=== PATIENT | female | born 1965 | race Caucasian/White ===

== ENCOUNTER 2018-04-09 08:27 | Emergency (ER) | payer OTHER ==
[~2018-04-09] VITALS: Ht 162.6 cm; Wt 69.0 kg
[~2018-04-09 08:27] MED LIST: ASPI-650 PO; CITA40TA5 PO
[2018-04-09] MEDS ORDERED: SODIUM CHLORIDE 0.9% 1,000 ML IV ONE (08:43)
[2018-04-09] MEDS ORDERED: FAMOTIDINE 20 MG/2 ML ONE (08:53)
[2018-04-09] MEDS ORDERED: ONDANSETRON ODT 4 MG ONE (08:53)
[2018-04-09] MEDS ORDERED: SODIUM CHLORIDE 0.9% 1,000ML IVBOLUS ONE (09:00)
[2018-04-09] MEDS ORDERED: FAMOTIDINE 20 MG/2 ML IVP ONE (09:00)
[2018-04-09] MEDS ORDERED: ONDANSETRON ODT 4 MG PO ONE (09:00)
[2018-04-09 09:11] LABS: MICROSCOPIC INDICATED
[2018-04-09 09:16] LABS: BASOPHILS # (AUTO) 0.02 x10^3/uL (0-0.1); BASOPHILS % (AUTO) 0 % (0-1); EOSINOPHILS # (AUTO) 0.12 x10^3/uL (0-0.4); EOSINOPHILS % (AUTO) 2 % (1-7); LYMPHOCYTES # (AUTO) 1.18 x10^3/uL (1-3.4); LYMPHOCYTES % (AUTO) 18 % (22-44); MD NO; MEAN CORPUSCULAR HGB CONC 34.4 g/dL (32.4-35.8); MEAN CORPUSCULAR VOLUME 84.5 fL (80-100); MEAN PLATELET VOLUME 7.1 fL (7.4-10.4); MONOCYTES # (AUTO) 0.74 x10^3/uL (0.2-0.8); MONOCYTES % (AUTO) 12 % (2-9); NEUTROPHILS # (AUTO) 4.37 x10^3/uL (1.8-6.8); NEUTROPHILS % (AUTO) 68 % (42-75); PLATELET COUNT 233 x10^3/uL (130-400); RED BLOOD COUNT 5.38 x10^6/uL (3.82-5.3); RED CELL DISTRIBUTION WIDTH 12.1 % (9.6-15.2)
[2018-04-09 09:21] LABS: CULTURE INDICATED? NO
[2018-04-09 09:25] LABS: ALANINE AMINOTRANSFERASE 24 U/L (12-78); ALBUMIN 3.1 g/dL (3.4-5.0); ANION GAP 9 mmol/L (5-15); CALCIUM 7.8 mg/dL (8.5-10.1); CHLORIDE 114 mmol/L (98-107); CREATININE 0.82 mg/dL (0.55-1.02)
[2018-04-09 09:27] LABS: ALKALINE PHOSPHATASE 73 U/L (45-117); BILIRUBIN,TOTAL 0.4 mg/dL (0.2-1.0); TOTAL PROTEIN 6.2 g/dL (6.4-8.2)
[2018-04-09 10:16] VITALS: BP 111/49
== END 2018-04-09 12:17 | disposition home or self-care (01) ==
LOC: ED 11:23
DX: R19.7 Diarrhea, unspecified (principal); R11.2 Nausea with vomiting, unspecified; E78.5 Hyperlipidemia, unspecified; Z86.73 Personal history of transient ischemic attack (TIA), and cerebral infarction without residual deficits
CPT/HCPCS: 36415; 80053; 81001; 83690; 85025; 89055; 96361; 96374; 99285; J7030; Q0162; S0028

== ENCOUNTER 2019-02-28 08:00 | Emergency (ER) | payer OTHER ==
[~2019-02-28] VITALS: Ht 162.6 cm; Wt 74.0 kg
--- NOTE | 2019-02-28 10:07 | NUR ---
Pt presents for biateral lower abd pain increasing x 1 month, much worse last couple days. Pt states has vaginal blood spotting. Denies urinary compaints. Mild nausea.
[2019-02-28 10:28] LABS: MICROSCOPIC NOT IND
[2019-02-28 10:33] LABS: CULTURE INDICATED? NO
[2019-02-28 11:02] LABS: BASOPHILS # (AUTO) 0.03 x10^3/uL (0-0.1); BASOPHILS % (AUTO) 0 % (0-1); EOSINOPHILS # (AUTO) 0.46 x10^3/uL (0-0.4); EOSINOPHILS % (AUTO) 7 % (1-7); LYMPHOCYTES # (AUTO) 2.21 x10^3/uL (1-3.4); LYMPHOCYTES % (AUTO) 32 % (22-44); MD NO; MEAN CORPUSCULAR HEMOGLOBIN 29.3 pg (27.0-34.8); MEAN CORPUSCULAR HGB CONC 34.3 g/dL (32.4-35.8); MEAN CORPUSCULAR VOLUME 85.6 fL (80-100); MEAN PLATELET VOLUME 7.3 fL (7.4-10.4); MONOCYTES # (AUTO) 0.52 x10^3/uL (0.2-0.8); MONOCYTES % (AUTO) 8 % (2-9); NEUTROPHILS # (AUTO) 3.65 x10^3/uL (1.8-6.8); NEUTROPHILS % (AUTO) 53 % (42-75); PLATELET COUNT 287 x10^3/uL (130-400); RED BLOOD COUNT 5.59 x10^6/uL (3.82-5.3); RED CELL DISTRIBUTION WIDTH 12.8 % (9.6-15.2)
[2019-02-28 11:07] LABS: CHLORIDE 108 mmol/L (98-107)
[2019-02-28 11:15] LABS: ALANINE AMINOTRANSFERASE 23 U/L (12-78); ALBUMIN 3.8 g/dL (3.4-5.0); ALKALINE PHOSPHATASE 95 U/L (45-117); ANION GAP 5 mmol/L (5-15); BILIRUBIN,TOTAL 0.5 mg/dL (0.2-1.0); CALCIUM 8.7 mg/dL (8.5-10.1); CREATININE 0.82 mg/dL (0.55-1.02); TOTAL PROTEIN 7.3 g/dL (6.4-8.2)
[2019-02-28 12:15] VITALS: BP 144/80
== END 2019-02-28 12:40 | disposition home or self-care (01) ==
LOC: ED 10:15
DX: R10.32 Left lower quadrant pain (principal); D25.1 Intramural leiomyoma of uterus; R10.31 Right lower quadrant pain; E78.5 Hyperlipidemia, unspecified
CPT/HCPCS: 36415; 76830; 80053; 81003; 85025; 99284

== ENCOUNTER 2019-12-29 06:31 | Emergency (ER) | payer OTHER ==
[~2019-12-29] VITALS: Ht 162.6 cm; Wt 73.1 kg
[2019-12-29 06:36] VITALS: BP 126/78
== END 2019-12-29 08:28 | disposition home or self-care (01) ==
LOC: ED 08:26
DX: B86 Scabies (principal); E78.5 Hyperlipidemia, unspecified; Z86.73 Personal history of transient ischemic attack (TIA), and cerebral infarction without residual deficits
CPT/HCPCS: 99283

== ENCOUNTER 2020-01-01 13:35 | Emergency (ER) | payer OTHER ==
--- NOTE | 2020-01-01 14:45 | NUR ---
PT REPORTS GENERALIZED ITCHING OF THE SKIN
[2020-01-01] MEDS ORDERED: DIPHENHYDRAMINE 50 MG/ML, 1ML ONE (14:59)
[2020-01-01] MEDS ORDERED: DIPHENHYDRAMINE 50 MG/ML, 1ML IV ONE (15:00)
[2020-01-01 15:02] LABS: BASOPHILS # (AUTO) 0.02 x10^3/uL (0-0.1); BASOPHILS % (AUTO) 0 % (0-1); EOSINOPHILS # (AUTO) 0.17 x10^3/uL (0-0.4); EOSINOPHILS % (AUTO) 4 % (1-7); LYMPHOCYTES # (AUTO) 0.92 x10^3/uL (1-3.4); LYMPHOCYTES % (AUTO) 19 % (22-44); MD NO; MEAN CORPUSCULAR HEMOGLOBIN 29.5 pg (27.0-34.8); MEAN CORPUSCULAR HGB CONC 33.7 g/dL (32.4-35.8); MEAN CORPUSCULAR VOLUME 87.5 fL (80-100); MEAN PLATELET VOLUME 7.2 fL (7.4-10.4); MONOCYTES # (AUTO) 0.48 x10^3/uL (0.2-0.8); MONOCYTES % (AUTO) 10 % (2-9); NEUTROPHILS # (AUTO) 3.34 x10^3/uL (1.8-6.8); NEUTROPHILS % (AUTO) 68 % (42-75); PLATELET COUNT 205 x10^3/uL (130-400); RED CELL DISTRIBUTION WIDTH 13.1 % (9.6-15.2)
[2020-01-01 15:14] LABS: RAPID INFLUENZA A POSITIVE (Negative); RAPID INFLUENZA B Negative (Negative)
[2020-01-01 15:15] LABS: ALANINE AMINOTRANSFERASE 26 U/L (12-78); ALBUMIN 3.3 g/dL (3.4-5.0); ANION GAP 6 mmol/L (5-15); CALCIUM 8.7 mg/dL (8.5-10.1); CHLORIDE 109 mmol/L (98-107); CREATININE 1.01 mg/dL (0.55-1.02)
[2020-01-01 15:17] LABS: ALKALINE PHOSPHATASE 84 U/L (45-117); BILIRUBIN,TOTAL 0.4 mg/dL (0.2-1.0); TOTAL PROTEIN 6.7 g/dL (6.4-8.2)
[2020-01-01 15:21] VITALS: BP 126/74
== END 2020-01-01 16:07 | disposition home or self-care (01) ==
LOC: ED 16:00
DX: L73.2 Hidradenitis suppurativa (principal); J10.1 Influenza due to other identified influenza virus with other respiratory manifestations; B86 Scabies; E78.5 Hyperlipidemia, unspecified; Z90.49 Acquired absence of other specified parts of digestive tract; Z86.73 Personal history of transient ischemic attack (TIA), and cerebral infarction without residual deficits; Z90.89 Acquired absence of other organs
CPT/HCPCS: 36415; 80053; 85025; 87400; 96374; 99283; J1200

== ENCOUNTER 2020-12-25 22:51 | Emergency (ER) | payer OTHER ==
[~2020-12-25] VITALS: Ht 162.6 cm; Wt 70.0 kg
[~2020-12-25 22:51] MED LIST changes: +ASPI-1026 PO; -ASPI-650 PO
[2020-12-25] MEDS ORDERED: FAMOTIDINE 20 MG/2 ML IVPush ONE (23:00)
--- NOTE | 2020-12-25 23:01 | NUR ---
PT BIB [facility] TO ROOM 17, WITH WHISPERING VOICE, STATES SHE CAN'T SPEAK LOUDLY YET AND FEELS SWELLING IN THE THROAT AND HER TONGUE. PT MEDICATED BY EMS ENROUTE AND PT STATES SHE FEELS BETTER NOW. PER EMS PTS SYMPTOMS CAME ON IN LESS THAN 30 MIN. PT ON CR MONITOR, AND MD TO BEDSIDE TO EVAL PT, AND MEDS ORDERED.
[2020-12-25] MEDS ORDERED: FAMOTIDINE 20 MG/2 ML ONE (23:03)
[2020-12-25] MEDS ORDERED: ONDANSETRON ODT 4 MG ONE (23:19)
[2020-12-25] MEDS ORDERED: ONDANSETRON ODT 4 MG PO ONE (23:30)
--- NOTE | 2020-12-26 00:05 | NUR ---
PT SITTING UPRIGHT ON CECILIA DUNN VSS. PT REPORTS "FEELING THE SAME WITH ALL THE SWELLING BUT NOTHING HAS GOTTEN WORSE." PT DENIES ANY NEEDS AT THIS TIME. CALL LIGHT AND PERSONAL BELONGINGS WITHIN REACH
--- NOTE | 2020-12-26 01:03 | NUR ---
PT SUPINE ON GURNEY, RESTING COMFORTABLY WITH EYES CLOSED. PT REPORTS DECREASED SENSATION OF SWELLING "ALL OVER". PT DENIES ANY NEEDS AT THIS TIME. CALL LIGHT AND BELONGINGS WITHIN REACH
[2020-12-26] MEDS ORDERED: DIPHENHYDRAMINE 50 MG/ML, 1ML ONE (02:16)
--- NOTE | 2020-12-26 02:20 | NUR ---
Pt remains a little puffy still, o2 sats stable. Remedicated per order.
[2020-12-26] MEDS ORDERED: DIPHENHYDRAMINE 50 MG/ML, 1ML IVPush ONE (02:30)
--- NOTE | 2020-12-26 02:58 | NUR ---
PT SUPINE ON GURNEY, RESTING COMFORTABLY WITH EYES CLOSED. PT REPORTS DECREASED SENSATION OF SWELLING "ALL OVER", SWELLING STILL PRESENT ON FACE, LIPS AND EYES. PT DENIES ANY NEEDS AT THIS TIME. CALL LIGHT AND BELONGINGS WITHIN REACH
--- NOTE | 2020-12-26 03:04 | NUR ---
PT AMBULATORY WITH STEADY GAIT TO BATHROOM. PT DENIES ANY NEEDS AT THIS TIME. CALL LIGHT AND BELONGINGS WITHIN REACH
--- NOTE | 2020-12-26 03:41 | NUR ---
SHAWNEE ARGUELLES: [phone]
[2020-12-26 03:53] VITALS: BP 104/54
--- NOTE | 2020-12-26 03:53 | NUR ---
ERP AT BEDSIDE FOR RE-EVAL
== END 2020-12-26 04:31 | disposition home or self-care (01) ==
LOC: ED 23:19
DX: T78.3XXA Angioneurotic edema, initial encounter (principal); T78.2XXA Anaphylactic shock, unspecified, initial encounter; R00.0 Tachycardia, unspecified; E78.5 Hyperlipidemia, unspecified; Z90.49 Acquired absence of other specified parts of digestive tract; Z90.89 Acquired absence of other organs; Z86.73 Personal history of transient ischemic attack (TIA), and cerebral infarction without residual deficits
CPT/HCPCS: 96374; 96375; 99285; J1200; Q0162

== ENCOUNTER 2021-03-20 10:17 | Emergency (ER) | payer OTHER ==
[~2021-03-20] VITALS: Ht 162.6 cm; Wt 73.3 kg
[2021-03-20 10:20] VITALS: BP 138/78
--- NOTE | 2021-03-20 10:44 | NUR ---
histologic aide: pt from lobby to room 4
--- NOTE | 2021-03-20 10:54 | NUR ---
at bedside for eval
--- NOTE | 2021-03-20 11:29 | NUR ---
Patient given discharge instructions and they have confirmed that they understand the instructions. Patient stable and ambulatory with steady gait from ED.
== END 2021-03-20 11:30 | disposition home or self-care (01) ==
LOC: ED 11:06
DX: M77.8 Other enthesopathies, not elsewhere classified (principal); E78.5 Hyperlipidemia, unspecified; Z86.73 Personal history of transient ischemic attack (TIA), and cerebral infarction without residual deficits; Z90.49 Acquired absence of other specified parts of digestive tract
CPT/HCPCS: 29105; 99283